=== PATIENT | male | born 1965 | race Two or more races ===

== ENCOUNTER 2020-04-09 13:18 | Emergency (ER) | payer OTHER ==
[~2020-04-09] VITALS: Ht 172.7 cm; Wt 88.5 kg
[2020-04-09] MEDS ORDERED: ATACAND16 MG (13:32)
[2020-04-09] MEDS ORDERED: TOPROL XL100 M1 PO (13:33)
[2020-04-09] MEDS ORDERED: CIPRO500 MG PO (19:14)
== END 2020-04-09 19:42 | disposition home or self-care (01) ==
LOC: ER 13:18
DX: R10.32 Left lower quadrant pain (principal); Z20.828 Contact with and (suspected) exposure to other viral communicable diseases